=== PATIENT | female | born 2000 | race Caucasian/White ===

== ENCOUNTER 2019-04-26 15:02 | Emergency (ER) | payer MEDICAID ==
[~2019-04-26] VITALS: Ht 167.6 cm; Wt 70.8 kg
[2019-04-26 19:14] VITALS: BP 116/87
== END 2019-04-26 19:14 | disposition home or self-care (01) ==
LOC: ED 15:02
DX: O32.1XX0 Maternal care for breech presentation, not applicable or unspecified (principal); O98.813 Other maternal infectious and parasitic diseases complicating pregnancy, third trimester; B37.3 Candidiasis of vulva and vagina; Z3A.30 30 weeks gestation of pregnancy